=== PATIENT | male | born 1945 | race Caucasian/White ===

== ENCOUNTER 2023-08-16 10:06 | Outpatient (AMB) | payer MEDICARE, OTHER, SELFPAY ==
--- NOTE | 2023-08-16 10:10 | HO.NEPHOV ---
HPI HPI Comments History of Present Illness Details I had the delight of seeing Chalino in consultation for angiomyolipoma as well as a renal cyst in the kidney. He has longstanding hypertension. His blood pressure control has been suboptimal on losartan and as a result hydrochlorothiazide was added to recently. He does not have any flank pain, hematuria, night sweats or weight loss. He is very methodical and has kept copies of all his medical records in his file. Some of the follow-up imaging studies did not show any renal stones. Also some other did not show both the renal cysts. His serum creatinine has been 1.0. He does not take any excessive nonsteroidal anti-inflammatories. He denies chest pain, shortness of breath, proximal nocturnal dyspnea, orthopnea, pedal edema, dysuria, hematuria. He has history of a TIA 6 years ago. He is on aspirin but does not take any statins now. [facility] Medical History (Updated 08/20/23 @ 16:37 by Sandro Pittman MD) Venous insufficiency Renal cyst Renal angiomyolipoma PPD positive Pleural plaque due to asbestos exposure CELY (obstructive sleep apnea) Nummular eczema Lung nodules Impaired fasting glucose Transient cerebral ischemia Esophageal dilatation Enlarged prostate Colon polyps Chronic sinusitis Calcification of aorta Benign hypertension Asthma Asbestos exposure Surgical History (Updated 08/16/23 @ 10:18 by Mayte Crockett MA) S/P correction of deviated nasal septum History of knee surgery History of back surgery History of appendectomy History of shoulder surgery H/O colonoscopy Family History (Updated 08/15/23 @ 13:10 by Mayte Crockett MA) Mother Kidney disease Father CAD (coronary artery disease) Social History (Updated 08/16/23 @ 10:20 by Mayte Crockett MA) Alcohol intake: current Patient Tobacco Use Status: Never used Tobacco Vital Signs 08/16/23 10:11 Height 5 ft 10.5 in Weight 175 lb 6 oz BMI 24.8 BP 126/60 Blood Pressure Location Lt brachial Position Sitting Pulse 67 Pulse Source Pulse Oximeter Pulse Oximetry (%) 98 Oxygen Delivery Method Room Air Physical Exam Vital Signs: Last Vital Signs Pulse 67 08/16/23 10:11 BP 126/60 08/16/23 10:11 Pulse Ox 98 08/16/23 10:11 Oxygen Delivery Method Room Air 08/16/23 10:11 BMI result Body Mass Index 24.8 Const General: comfortable and no acute distress Orientation/consciousness: patient oriented x3 HEENT Head: Yes normocephalic Mouth: Normal oral and palatal mucosa present Eyes EOM: EOMs intact bilaterally Neck Neck: Yes supple Resp Auscultation: clear to auscultation bilaterally Cardio Jugular venous distension: no JVD Rate: regular rate GI Palpation (GI): Soft to palpation Auscultation: normal bowel sounds General: Yes no CVA tenderness Back/Spine/Pelvis Back: no CVA tenderness Skin General skin exam: no rashes or lesions noted Neuro General: patient oriented x3 and moves all extremities Extrem General: Yes no pedal edema Assessment & Plan Assessment & Plan (1) Renal cyst: Code(s): N28.1 - Cyst of kidney, acquired (2) Renal angiomyolipoma: Code(s): D1. - Benign lipomatous neoplasm of kidney (3) Hypertension: Code(s): I10 - Essential (primary) hypertension Qualifiers: Hypertension type: primary hypertension Qualified Code(s): I10 - Essential (primary) hypertension Plan Chalino has history of angiomyolipoma of the kidney as well as history of 2 renal cysts. He had a renal calculus noted in 1 of the scans which was not picked up in the very last imaging study. His serum creatinine is normal. He has longstanding blood pressure and has been taking losartan. Blood pressure was still suboptimal and hydrochlorothiazide was introduced recently with improvement in blood pressure readings. I have ordered repeat renal functions prior to CT abdomen and pelvis with intravenous contrast. If his angiomyolipoma is getting significantly bigger, it may need embolization. I did not make any medication changes today. All his questions were answered. Follow-up given. Orders: Orders Blood Urea Nitrogen 08/16/23 D1. - Benign lipomatous neoplasm of kidney, N28.1 - Cyst of kidney, acquired CT abdomen pelvis w IV con 08/16/23 D1. - Benign lipomatous neoplasm of kidney, N28.1 - Cyst of kidney, acquired PSA,Total (Free>4and<10) 08/16/23 D1 - Benign lipomatous neoplasm of kidney, N28.1 - Cyst of kidney, acquired Creatinine 08/16/23 D1. - Benign lipomatous neoplasm of kidney, N28.1 - Cyst of kidney, acquired Electrolytes 08/16/23 D17.71 - Benign lipomatous neoplasm of kidney, N28.1 - Cyst of kidney, acquired Coding Level of Care Code New Pt Level 4 (42266) Diagnoses Renal cyst N28.1 Renal angiomyolipoma D17.71 Primary hypertension I10 Hypertension type: primary hypertension Results Reviewed Nephrology Results: No Data to Display
[2023-08-16 10:11] VITALS: BP 126/60; PULSE 67; O2SAT 98; BMI 24.8
== END 2023-08-16 11:07 | disposition home or self-care (01) ==
PROVIDERS: PCP Internal Medicine; Visit Provider Internal Medicine Nephrology
DX: N28.1 Cyst of kidney, acquired (principal); D17.71 Benign lipomatous neoplasm of kidney; I10 Essential (primary) hypertension
CPT/HCPCS: 99204

== ENCOUNTER → 2023-08-16 10:06 | Outpatient (BNVA) | payer MEDICARE, OTHER, SELFPAY | PROVIDERS: PCP Internal Medicine; Visit Provider Internal Medicine Nephrology | DX: D17.71 Benign lipomatous neoplasm of kidney (principal); N28.1 Cyst of kidney, acquired; I10 Essential (primary) hypertension | CPT/HCPCS: 99202 ==

== ENCOUNTER 2023-08-28 13:57 | Outpatient (REF) | payer MEDICARE, OTHER, SELFPAY ==
--- NOTE | ~2023-08-28 | CT_ITS ---
EXAMINATION: CT ABDOMEN AND PELVIS WITH CONTRAST CLINICAL INFORMATION: Renal cyst COMPARISON: Previous CT of the chest August 2009 and abdomen and pelvis July 2009 TECHNIQUE: Multidetector volumetric images were obtained from the superior aspect of the liver through the pubic symphysis following administration 85 mL of Omnipaque 350 intravenous contrast. Sagittal and coronal reformatted images were obtained on the technologist's workstation. Oral contrast: No This CT examination was performed using dose optimization techniques as appropriate, variously including the following: *Automated exposure control *Adjustment of mA and/or kV according to patient size (this includes techniques or standardized protocols for targeted exams where dose is matched to indication/reason for exam; i.e. extremities or head) *Use of iterative reconstruction technique DLP: 370 mGy-cm FINDINGS: LUNG BASES: Right pleural calcification and pleural thickening. 5 mm right lower lobe nodule axial image 4 series 6, stable. Small linear scarring or subsegmental atelectasis left lower lobe. LIVER, GALLBLADDER, AND BILIARY TREE: The liver is normal in size, shape, and attenuation. No focal hepatic lesion or biliary ductal dilatation is present. The gallbladder is unremarkable with no evidence of radiopaque gallstones, gallbladder wall thickening, or obvious pericholecystic inflammatory changes. PANCREAS: 9 mm fatty lesion in the body of the pancreas probably representing a benign lipoma. Increase in size from 5 mm in 2010 exams SPLEEN: Unremarkable. ADRENAL GLANDS: Unremarkable. KIDNEYS AND URETERS: The kidneys are normal in size, shape, and attenuation. 4 mm cortical calcification in the lower pole of the right kidney. 2 small 5 mm low-attenuation lesions in the lower pole the right kidney probably representing cysts. 3 mm stone in the lower pole of the left kidney. 1 cm cyst in the upper pole of the left kidney. No imaging follow-up of renal cysts recommended. BLADDER: Unremarkable. GASTROINTESTINAL TRACT: The small and large bowel are unremarkable. The appendix is is not seen. The stomach is unremarkable. ABDOMINAL WALL: No significant hernia is appreciated. LYMPH NODES: Normal. VASCULAR: Unremarkable. PELVIC VISCERA: Enlarged prostate gland measuring 5.2 x 6.2 cm in AP and transverse dimension. OSSEOUS STRUCTURES: Degenerative changes of the spine. CT/CT abdomen pelvis w IV con IMPRESSION: Small bilateral renal cysts, largest measuring 1 cm in the upper pole of the left kidney. No imaging follow-up recommended. Small nonobstructing left lower pole renal stone. Small probable right cortical calcification. Enlarged prostate gland. 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 Fleischner guidelines were followed.
[2023-08-28 14:48] LABS: Anion Gap 12 (12-20); Blood Urea Nitrogen 26 mg/dL (9-16); Carbon Dioxide 28 mmol/L (22-29); Chloride 104 mmol/L (96-108); Estimated Glomerular Filt Rate 55; Potassium 4.2 mmol/L (3.3-5.1); Sodium 140 mmol/L (135-145)
[2023-08-28 15:11] LABS: PSA,Total (Free>4and<10) 3.04 ng/mL (0.00-4.00)
[2023-08-28] MEDS: iohexoL 350 MG/ML 100 ML INFUS..BTL 85 ML IV (16:05)
== END 2023-08-28 13:58 | disposition home or self-care (01) ==
LOC: HO.CT 13:57
PROVIDERS: PCP Internal Medicine; Visit Provider Internal Medicine Nephrology
DX: Z12.5 Encounter for screening for malignant neoplasm of prostate (principal); N28.1 Cyst of kidney, acquired; D17.71 Benign lipomatous neoplasm of kidney
CPT/HCPCS: 36415; 74177; 80051; 82565; 84153; 84520; Q9967

== ENCOUNTER → 2024-01-20 10:29 | Outpatient (BNVA) | payer SELFPAY | PROVIDERS: PCP Internal Medicine | DX: Z02.79 Encounter for issue of other medical certificate (principal) ==

== ENCOUNTER → 2024-01-22 09:53 | Outpatient (BNVA) | payer SELFPAY | PROVIDERS: PCP Internal Medicine; Visit Provider Internal Medicine | DX: Z00.00 Encounter for general adult medical examination without abnormal findings (principal); Z13.5 Encounter for screening for eye and ear disorders ==

== ENCOUNTER 2024-02-14 10:04 | Outpatient (AMB) | payer MEDICARE, OTHER, SELFPAY ==
[2024-02-14 10:07] VITALS: BP 124/60; PULSE 74; O2SAT 98; BMI 22.3
--- NOTE | 2024-02-14 10:07 | HO.NEPHOV_ITS ---
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 He has longstanding hypertension. He has lost 19 pounds by dietary changes. He does not have any flank pain, hematuria, night sweats or weight loss. He is very methodical and has kept copies of all his medical records in his file. Some of the follow-up imaging studies did not show any renal stones. Also some other did not show both the renal cysts. His serum creatinine has been 1.2. He does not take any excessive nonsteroidal anti- inflammatories. He denies chest pain, shortness of breath, proximal nocturnal dyspnea, orthopnea, pedal edema, dysuria, hematuria. He has history of a TIA 6 years ago. He is on aspirin but does not take any statins now. [facility] Medical History (Updated 02/14/24 @ 10:39 by Sandro Pittman MD) Venous insufficiency Renal cyst Renal angiomyolipoma PPD positive Pleural plaque due to asbestos exposure CELY (obstructive sleep apnea) Nummular eczema Lung nodules Impaired fasting glucose Transient cerebral ischemia Esophageal dilatation Enlarged prostate Colon polyps Chronic sinusitis Calcification of aorta Benign hypertension Asthma Asbestos exposure Surgical History S/P correction of deviated nasal septum History of knee surgery History of back surgery History of appendectomy History of shoulder surgery H/O colonoscopy Family History Mother Kidney disease Father CAD (coronary artery disease) Social History Alcohol intake: current Patient Tobacco Use Status: Never used Tobacco Physical Exam Vital Signs: Last Vital Signs Pulse 74 02/14/24 10:07 BP 124/60 02/14/24 10:07 Pulse Ox 98 02/14/24 10:07 Oxygen Delivery Method Room Air 02/14/24 10:07 BMI result Body Mass Index 22.3 Const General: comfortable and no acute distress Orientation/consciousness: patient oriented x3 HEENT Head: Yes normocephalic Mouth: Normal oral and palatal mucosa present Eyes EOM: EOMs intact bilaterally Neck Neck: Yes supple Resp Auscultation: clear to auscultation bilaterally Cardio Jugular venous distension: no JVD Rate: regular rate GI Palpation (GI): Soft to palpation Auscultation: normal bowel sounds General: Yes no CVA tenderness Back/Spine/Pelvis Back: no CVA tenderness Skin General skin exam: no rashes or lesions noted Neuro General: patient oriented x3 and moves all extremities Extrem General: Yes no pedal edema Results Reviewed Nephrology Results: Sodium 140 mmol/L (135-145) 08/28/23 Potassium 4.2 mmol/L (3.3-5.1) 08/28/23 Chloride 104 mmol/L (96-108) 08/28/23 Carbon Dioxide 28 mmol/L (22-29) 08/28/23 BUN 26 mg/dL (9-16) H 08/28/23 Creatinine 1.27 mg/dL (0.5-1.4) 08/28/23 Assessment & Plan Assessment & Plan (1) Hypertension: Code(s): I10 - Essential (primary) hypertension Category: Medical Qualifiers: Hypertension type: primary hypertension Qualified Code(s): I10 - Essential (primary) hypertension (2) Renal cyst: Code(s): N28.1 - Cyst of kidney, acquired Category: Medical (3) Renal angiomyolipoma: Code(s): D17.71 - Benign lipomatous neoplasm of kidney Category: Medical (4) Renal calculus: Code(s): N20.0 - Calculus of kidney Category: Medical (5) High prostate specific antigen (PSA): Code(s): R97.20 - Elevated prostate specific antigen [PSA] Category: Medical (6) Renal calculus: Code(s): N20.0 - Calculus of kidney Category: Medical Plan Chalino has history of angiomyolipoma of the kidney as well as history of 2 renal cysts. He had a renal calculus . I ordered a follow up renal USS. Blood pressure is optimal on current medications. I have ordered repeat renal functions and PSA.. If his angiomyolipoma is getting significantly bigger, it may need embolization. I did not make any medication changes today. All his questions were answered. Follow-up given Orders: Orders Creatinine Today I10 - Essential (primary) hypertension, N20.0 - Calculus of kidney, R97.20 - Elevated prostate specific antigen [PSA] US renal BI Today N20.0 - Calculus of kidney PSA,Total (Free>4and<10) Today R97.20 - Elevated prostate specific antigen [PSA] Electrolytes Today I10 - Essential (primary) hypertension, N20.0 - Calculus of kidney, R97.20 - Elevated prostate specific antigen [PSA] Blood Urea Nitrogen Today I10 - Essential (primary) hypertension, N20.0 - Calculus of kidney, R97.20 - Elevated prostate specific antigen [PSA] Coding Level of Care Code Est Pt Level 4 (73094) Diagnoses Primary hypertension I10 Hypertension type: primary hypertension Renal cyst N28.1 Renal angiomyolipoma D17.71 Renal calculus N20.0 High prostate specific antigen (PSA) R97.20
== END 2024-02-14 10:47 | disposition home or self-care (01) ==
PROVIDERS: PCP Internal Medicine; Visit Provider Internal Medicine Nephrology
DX: I10 Essential (primary) hypertension (principal); N28.1 Cyst of kidney, acquired; D17.71 Benign lipomatous neoplasm of kidney; N20.0 Calculus of kidney; R97.20 Elevated prostate specific antigen [PSA]
CPT/HCPCS: 99214

== ENCOUNTER → 2024-02-14 10:04 | Outpatient (BNVA) | payer MEDICARE, OTHER, SELFPAY | PROVIDERS: PCP Internal Medicine; Visit Provider Internal Medicine Nephrology | DX: N28.1 Cyst of kidney, acquired (principal); D17.71 Benign lipomatous neoplasm of kidney; N20.0 Calculus of kidney; R97.20 Elevated prostate specific antigen [PSA]; I10 Essential (primary) hypertension | CPT/HCPCS: 99212 ==

== ENCOUNTER 2024-03-05 09:05 | Outpatient (REF) | payer MEDICARE, OTHER, SELFPAY ==
[2024-03-05 10:00] LABS: Anion Gap 9 (12-20); Blood Urea Nitrogen 20 mg/dL (9-16); Carbon Dioxide 31 mmol/L (22-29); Chloride 105 mmol/L (96-108); Estimated Glomerular Filt Rate > 60; Potassium 4.4 mmol/L (3.3-5.1); Sodium 141 mmol/L (135-145)
[2024-03-05 10:22] LABS: PSA,Total (Free>4and<10) 3.11 ng/mL (0.00-4.00)
== END 2024-03-05 09:06 | disposition home or self-care (01) ==
LOC: HO.LAB 09:05
PROVIDERS: PCP Internal Medicine; Visit Provider Internal Medicine Nephrology
DX: N20.0 Calculus of kidney (principal); I10 Essential (primary) hypertension; R97.20 Elevated prostate specific antigen [PSA]; Z12.5 Encounter for screening for malignant neoplasm of prostate
CPT/HCPCS: 36415; 80051; 82565; 84153; 84520

== ENCOUNTER 2024-03-09 10:03 | Outpatient (REF) | payer MEDICARE, OTHER, SELFPAY ==
--- NOTE | ~2024-03-09 | US_ITS ---
EXAMINATION: US RETROPERITONEAL LIMITED (RENAL ONLY) CLINICAL INFORMATION: Follow-up renal calculus; intermittent left flank pain. COMPARISON: CT abdomen and pelvis dated 08/28/2023. TECHNIQUE: Real-time imaging of the kidneys. FINDINGS: RIGHT KIDNEY: 12.6 x 4.2 x 4.8 cm (SAG x AP x TRV). The kidney is normal in size, contour, and echogenicity. Renal cortical thickness is normal. No calculi or focal parenchymal lesions. No hydronephrosis. At the upper pole, a 1.1 cm benign, simple cyst is seen, for which no imaging follow-up is recommended. LEFT KIDNEY: 10.2 x 3.9 x 6.0 cm (SAG x AP x TRV). The kidney is normal in size, contour, and echogenicity. Renal cortical thickness is normal. No calculi or focal parenchymal lesions. There is very mild hydronephrosis. At the upper pole, a 1.2 cm simple cyst is seen, for which no imaging follow-up is recommended. OTHER: Bilateral ureteric jets are seen. There is mild left ureterectasis. US/US renal BI IMPRESSION: There is very mild left hydronephrosis and proximal hydroureter. Otherwise, unremarkable examination. No calculus is seen.
== END 2024-03-09 10:04 | disposition home or self-care (01) ==
LOC: HO.US 10:03
PROVIDERS: PCP Internal Medicine; Visit Provider Internal Medicine Nephrology
DX: N20.0 Calculus of kidney (principal)
CPT/HCPCS: 76775

== ENCOUNTER 2024-07-17 09:48 | Outpatient (AMB) | payer MEDICARE, OTHER, SELFPAY ==
--- NOTE | 2024-07-17 10:14 | HO.NEPHOV_ITS ---
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 He has longstanding hypertension. He has lost 19 pounds by dietary changes. He does not have any flank pain, hematuria, night sweats or weight loss. He is very methodical and has kept copies of all his medical records in his file. Some of the follow-up imaging studies did not show any renal stones. Also some other did not show both the renal cysts. His serum creatinine has been 1.2. He does not take any excessive nonsteroidal anti-inflammatories. He denies chest pain, shortness of breath, proximal nocturnal dyspnea, orthopnea, pedal edema, dysuria, hematuria. He has history of a TIA 6 years ago. He is on aspirin but does not take any statins now. [facility] Medical History (Updated 02/14/24 @ 10:39 by Sandro Pittman MD) Venous insufficiency Renal cyst Renal angiomyolipoma PPD positive Pleural plaque due to asbestos exposure CELY (obstructive sleep apnea) Nummular eczema Lung nodules Impaired fasting glucose Transient cerebral ischemia Esophageal dilatation Enlarged prostate Colon polyps Chronic sinusitis Calcification of aorta Benign hypertension Asthma Asbestos exposure Surgical History S/P correction of deviated nasal septum History of knee surgery History of back surgery History of appendectomy History of shoulder surgery H/O colonoscopy Family History Mother Kidney disease Father CAD (coronary artery disease) Social History Alcohol intake: current Patient Tobacco Use Status: Never used Tobacco Review of Systems Const All systems reviewed & are unremarkable except as noted in HPI and below Physical Exam Vital Signs: Last Vital Signs BP 130/70 07/17/24 10:17 BMI result Body Mass Index 22.5 Const General: comfortable and no acute distress Orientation/consciousness: patient oriented x3 HEENT Head: Yes normocephalic Mouth: Normal oral and palatal mucosa present Eyes EOM: EOMs intact bilaterally Neck Neck: Yes supple Resp Auscultation: clear to auscultation bilaterally Cardio Jugular venous distension: no JVD Rate: regular rate GI Palpation (GI): Soft to palpation Auscultation: normal bowel sounds General: Yes no CVA tenderness Back/Spine/Pelvis Back: no CVA tenderness Skin General skin exam: no rashes or lesions noted Neuro General: patient oriented x3 and moves all extremities Extrem General: Yes no pedal edema Results Reviewed Nephrology Results: Sodium 141 mmol/L (135-145) 03/05/24 Potassium 4.4 mmol/L (3.3-5.1) 03/05/24 Chloride 105 mmol/L (96-108) 03/05/24 Carbon Dioxide 31 mmol/L (22-29) H 03/05/24 BUN 20 mg/dL (9-16) H 03/05/24 Creatinine 0.92 mg/dL (0.5-1.4) 03/05/24 Renal US 03/09/24 Assessment & Plan Assessment & Plan (1) Renal calculus: Code(s): N20.0 - Calculus of kidney Category: Medical (2) Hypertension: Code(s): I10 - Essential (primary) hypertension Category: Medical Qualifiers: Hypertension type: primary hypertension Qualified Code(s): I10 - Essential (primary) hypertension (3) Renal cyst: Code(s): N28.1 - Cyst of kidney, acquired Category: Medical Plan Chalino has history of angiomyolipoma of the kidney as well as history of 2 renal cysts. He had a renal calculus . Follow up renal USS showed very mild left hydronephrosis and proximal hydroureter. Otherwise, unremarkable examination. No calculus is seen.. Blood pressure is optimal on current medications. If his angiomyolipoma is getting significantly bigger, it may need embolization. I did not make any medication changes today. All his questions were answered. Follow-up given Orders: Orders Creatinine 6 Months I10 - Essential (primary) hypertension, N20.0 - Calculus of kidney, N28.1 - Cyst of kidney, acquired Blood Urea Nitrogen 6 Months I10 - Essential (primary) hypertension, N20.0 - Calculus of kidney, N28.1 - Cyst of kidney, acquired Electrolytes 6 Months I10 - Essential (primary) hypertension, N20.0 - Calculus of kidney, N28.1 - Cyst of kidney, acquired Coding Level of Care Code Est Pt Level 4 (03763) Diagnoses Renal calculus N20.0 Primary hypertension I10 Hypertension type: primary hypertension Renal cyst N28.1
[2024-07-17 10:17] VITALS: BP 130/70; BMI 22.5
== END 2024-07-17 10:35 | disposition home or self-care (01) ==
PROVIDERS: PCP Internal Medicine; Visit Provider Internal Medicine Nephrology
DX: N20.0 Calculus of kidney (principal); I10 Essential (primary) hypertension; N28.1 Cyst of kidney, acquired
CPT/HCPCS: 99214

== ENCOUNTER → 2024-07-17 09:48 | Outpatient (BNVA) | payer MEDICARE, OTHER, SELFPAY | PROVIDERS: PCP Internal Medicine; Visit Provider Internal Medicine Nephrology | DX: I10 Essential (primary) hypertension (principal); N20.0 Calculus of kidney; N28.1 Cyst of kidney, acquired; D17.9 Benign lipomatous neoplasm, unspecified | CPT/HCPCS: 99212 ==

== ENCOUNTER 2025-01-08 09:43 | Outpatient (REF) | payer MEDICARE, OTHER, SELFPAY ==
--- OUTSIDE RECORDS SUMMARY | 2025-01-08 10:15 | XMS_ITS | Patient Health Record ---
[facility] Address [address] [place] [address] Care Team Providers Care Sports Therapist Name Role Phone Tera Lundberg Primary Care Provider Matt Mosley Unavailable [phone] Reason For Referral No Information Medications Medication SIG (Take, Route, Frequency, Duration) Notes Start Date End Date Status Losartan Potassium 25 MG 1 tablet Orally Once a day Active Aspirin 81 MG 1 tablet Orally Once a day Active Social History Tobacco Use: Social History Observation Description Date Details (start date - stop date) Never Smoker NA - NA Tobacco Use/Smoking Question Answer Notes Are you a: nonsmoker Additional Findings: Tobacco Non-User Current no n-smoker Alcohol Screen Question Answer Notes Did you have a drink contain ing alcohol in the past year? Yes How often did you have a dri nk containing alcohol in the past year? 2 to 4 times a month (2 points) Points 2 Interpretation Negative Problems Problem Type SNOMED Code ICD Code Onset Dates Problem Status W/U Status Risk Notes Problem Tinea unguium (571458745) Tinea unguium (B35.1) Active confirmed Problem Plantar wart (55784195) Plantar wart (B07.0) Active confirmed Plan Of Treatment Pending Test Test Name Order Date [id number] Destruction, 1-14 03/11/2018 Insurance Providers Payer Name Payer Address Payer Phone Subscriber Number Group Number Insured Name Patient Relationship to Insured Coverage Start Date Coverage End Date Medicare [employer] [address] [facility] [address] [id number] Chalino Carmen Self - patient is the insured [facility] [employer] [facility] [address] [place] [address] [id number] Chalino Carmen Self - patient is the insured Medical (General) History Medical History History ICD Code asthma Broken bones, fibula, right, left High blood pressure Asbestos Exposure while in the [place] Surgical History Surgery Date(Month/Year) carpal tunnel surgery, left 11/2015 carpal tunnel surgery, right 09/2011 rotator cuff, left, complication of open shoulder 08/2008 rotator cuff, right, complication of ope n shoulder 03/2008 back surgery, bulging disc, L5-S1 1
[2025-01-08 10:48] LABS: Anion Gap 9 (12-20); Blood Urea Nitrogen 30 mg/dL (9-16); Carbon Dioxide 29 mmol/L (22-29); Chloride 104 mmol/L (96-108); Estimated Glomerular Filt Rate > 60; Potassium 4.8 mmol/L (3.3-5.1); Sodium 137 mmol/L (135-145)
== END 2025-01-08 09:44 | disposition home or self-care (01) ==
LOC: HO.LAB 09:43
PROVIDERS: PCP Internal Medicine; Visit Provider Internal Medicine Nephrology
DX: N28.1 Cyst of kidney, acquired (principal); N20.0 Calculus of kidney; I10 Essential (primary) hypertension
CPT/HCPCS: 36415; 80051; 82565; 84520

== ENCOUNTER 2025-01-13 11:12 | Outpatient (AMB) | payer MEDICARE, OTHER, SELFPAY ==
--- NOTE | 2025-01-13 11:15 | HO.NEPHOV_ITS ---
Vital Signs 01/13/25 11:19 Height 5 ft 10.5 in Weight 160 lb BMI 22.6 BP 130/70 Blood Pressure Location Lt brachial Position Sitting Pulse 67 Pulse Source Pulse Oximeter Pulse Oximetry (%) 97 Oxygen Delivery Method Room Air Intake Visit Reasons: Renal angiomyolipoma-Conf Inside Technical Sales Representative Required: No Accompanied by: Self / Same As Patient Allergies No Known Allergies Allergy (Verified 01/13/25 11:18) HPI Comments Details: Chalino was seen in follow up for angiomyolipoma as well as a renal cyst in the kidney. He has longstanding hypertension. He has lost 19 pounds by dietary changes. He does not have any flank pain, hematuria, night sweats or weight loss. He is very methodical and has kept copies of all his medical records in his file. Some of the follow-up imaging studies did not show any renal stones. Also some other did not show both the renal cysts. His serum creatinine has been 1.2. He does not take any excessive nonsteroidal anti-inflammatories. He denies chest pain, shortness of breath, proximal nocturnal dyspnea, orthopnea, pedal edema, dysuria, hematuria. He has history of a TIA 6 years ago. He is on aspirin and statins. [facility] Medical History (Updated 02/14/24 @ 10:39 by Sandro Pittman MD) Venous insufficiency Renal cyst Renal angiomyolipoma PPD positive Pleural plaque due to asbestos exposure CELY (obstructive sleep apnea) Nummular eczema Lung nodules Impaired fasting glucose Transient cerebral ischemia Esophageal dilatation Enlarged prostate Colon polyps Chronic sinusitis Calcification of aorta Benign hypertension Asthma Asbestos exposure Surgical History S/P correction of deviated nasal septum History of knee surgery History of back surgery History of appendectomy History of shoulder surgery H/O colonoscopy Family History Mother Kidney disease Father CAD (coronary artery disease) Social History Alcohol intake: current Patient Tobacco Use Status: Never used Tobacco Review of Systems Const All systems reviewed & are unremarkable except as noted in HPI and below Physical Exam Const General: comfortable and no acute distress Orientation/consciousness: patient oriented x3 HEENT Head: Yes normocephalic Mouth: Normal oral and palatal mucosa present Eyes EOM: EOMs intact bilaterally Neck Neck: Yes supple Resp Auscultation: clear to auscultation bilaterally Cardio Jugular venous distension: no JVD Rate: regular rate GI Palpation (GI): Soft to palpation Auscultation: normal bowel sounds General: Yes no CVA tenderness Back/Spine/Pelvis Back: no CVA tenderness Skin General skin exam: no rashes or lesions noted Neuro General: patient oriented x3 and moves all extremities Extrem General: Yes no pedal edema Results Reviewed Nephrology Results: Sodium, (135-145) 137 mmol/L 01/08/25 Potassium, (3.3-5.1) 4.8 mmol/L 01/08/25 Chloride, (96-108) 104 mmol/L 01/08/25 Carbon Dioxide, (22-29) 29 mmol/L 01/08/25 BUN, (9-16) 30 mg/dL H 01/08/25 Creatinine, (0.5-1.4) 0.95 mg/dL 01/08/25 Renal US 03/09/24 Assessment & Plan Assessment & Plan (1) Hypertension: Code(s): I10 - Essential (primary) hypertension Category: Medical Qualifiers: Hypertension type: primary hypertension Qualified Code(s): I10 - Essential (primary) hypertension (2) Renal cyst: Code(s): N28.1 - Cyst of kidney, acquired Category: Medical (3) Renal calculus: Code(s): N20.0 - Calculus of kidney Category: Medical (4) Renal angiomyolipoma: Code(s): D17.71 - Benign lipomatous neoplasm of kidney Category: Medical Plan Chalino has history of angiomyolipoma of the kidney as well as history of 2 renal cysts. He had a renal calculus . Follow up renal USS showed very mild left hydronephrosis and proximal hydroureter. Otherwise, unremarkable examination. No calculus is seen.. Blood pressure is optimal on current medications. If his angiomyolipoma is getting significantly bigger, it may need embolization. I did not make any medication changes today. All his questions were answered. Follow-up given Orders: Orders Calcium 1 Year D17.71 - Benign lipomatous neoplasm of kidney, I10 - Essential (primary) hypertension, N20.0 - Calculus of kidney, N28.1 - Cyst of kidney, acquired, R97.20 - Elevated prostate specific antigen [PSA] Blood Urea Nitrogen 1 Year D17.71 - Benign lipomatous neoplasm of kidney, I10 - Essential (primary) hypertension, N20.0 - Calculus of kidney, N28.1 - Cyst of kidney, acquired, R97.20 - Elevated prostate specific antigen [PSA] PSA,Total (Free>4and<10) 1 Year D17.71 - Benign lipomatous neoplasm of kidney, I10 - Essential (primary) hypertension, N20.0 - Calculus of kidney, N28.1 - Cyst of kidney, acquired, R97.20 - Elevated prostate specific antigen [PSA] Protein Creatinine Ratio, Ur 1 Year D17.71 - Benign lipomatous neoplasm of kidney, I10 - Essential (primary) hypertension, N20.0 - Calculus of kidney, N28.1 - Cyst of kidney, acquired, R97.20 - Elevated prostate specific antigen [PSA] US renal BI 1 Month D17.71 - Benign lipomatous neoplasm of kidney, I10 - Essential (primary) hypertension, N20.0 - Calculus of kidney, N28.1 - Cyst of kidney, acquired Electrolytes 1 Year D17.71 - Benign lipomatous neoplasm of kidney, I10 - Essential (primary) hypertension, N20.0 - Calculus of kidney, N28.1 - Cyst of kidney, acquired, R97.20 - Elevated prostate specific antigen [PSA] Creatinine 1 Year D17.71 - Benign lipomatous neoplasm of kidney, I10 - Essential (primary) hypertension, N20.0 - Calculus of kidney, N28.1 - Cyst of kidney, acquired, R97.20 - Elevated prostate specific antigen [PSA] Coding Level of Care Code Est Pt Level 4 (33526) Diagnoses Primary hypertension I10 Hypertension type: primary hypertension Renal cyst N28.1 Renal calculus N20.0 Renal angiomyolipoma D17.
[2025-01-13 11:19] VITALS: BP 130/70; PULSE 67; O2SAT 97; BMI 22.6
--- OUTSIDE RECORDS SUMMARY | 2025-01-13 13:01 | XMS_ITS | Patient Health Record ---
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 And Cookie Machine Operator Name Role Phone Tera Lundberg Primary Care Provider Matt Mosley Unavailable [phone] Reason For Referral No Information Medications Medication [...] W/U Status Risk Notes Problem Tinea unguium (551199864) Tinea unguium (B35.1) Active confirmed Problem Plantar wart (07735202) Plantar wart (B07.0) Active confirmed Plan Of Treatment Pending Test Test Name Order Date [id number] Destruction, 1-14 03/11/2018 Insurance Providers Payer Name Payer Address Payer Phone Subscriber Number Group Number Insured Name Patient Relationship to Insured Coverage Start Date Coverage End Date Medicare National Govt Svcs Inc [address] [place] [address] [id number] Chalino Carmen Self - patient is the insured 8 [facility] [employer] [facility] [address] [place] [address] [id number] Chalino Carmen Self - patient is the insured Medical (General) History Medical History History ICD Code asthma Broken bones, fibula, right, left High blood pressure Asbestos Exposure while in the [employer] [place] Surgical History Surgery Date(Month/Year) carpal tunnel surgery, left 11/2015 carpal tunnel surgery, right 09/2011 rotator cuff, left, complication of open shoulder 08/2008 rotator cuff, right, complication of ope n shoulder 03/2008 back surgery, bulging disc, L5-S1 1
== END 2025-01-13 11:46 | disposition home or self-care (01) ==
LOC: HO.HKA 11:13
PROVIDERS: PCP Internal Medicine; Visit Provider Internal Medicine Nephrology
DX: I10 Essential (primary) hypertension (principal); N28.1 Cyst of kidney, acquired; N20.0 Calculus of kidney; D17.71 Benign lipomatous neoplasm of kidney
CPT/HCPCS: 99214

== ENCOUNTER → 2025-01-13 11:12 | Outpatient (BNVA) | payer MEDICARE, OTHER, SELFPAY | PROVIDERS: PCP Internal Medicine; Visit Provider Internal Medicine Nephrology | DX: I10 Essential (primary) hypertension (principal); N28.1 Cyst of kidney, acquired; N20.0 Calculus of kidney; D17.71 Benign lipomatous neoplasm of kidney | CPT/HCPCS: 99212 ==

== ENCOUNTER 2025-02-23 15:04 | Outpatient (REF) | payer MEDICARE, OTHER, SELFPAY ==
--- NOTE | ~2025-02-23 | US_ITS ---
CLINICAL HISTORY: N28.1 - Cyst of kidney, acquired --- Additional Notes or Special Instructions: Has H O angiomyolipoma US renal Comparison: None Provided Findings: Right kidney 9.0 cm length. No significant focal abnormality. Left kidney 9.3 cm length. No significant focal abnormality. Bilateral upper pole cysts. No bilateral hydronephrosis. Normal bilateral renal echogenicity. Impression: No significant abnormalities. This document has been electronically signed by: Asher Portillo MD on 02/23/2025 21:13:59
--- OUTSIDE RECORDS SUMMARY | 2025-02-23 15:56 | XMS_ITS | Patient Health Record ---
Author Organization [facility] Address [address] [place] [address] Care Team Providers Care Rubber And Plastics Worker Name Role Phone Tera Lundberg Primary Care Provider Matt Mosley Unavailable [phone] Reason For Referral No Information Medications Medication [...] W/U Status Risk Notes Problem Tinea unguium (205741998) Tinea unguium (B35.1) Active confirmed Problem Plantar wart (11985235) Plantar wart (B07.0) Active confirmed Plan Of Treatment Pending Test Test Name Order Date [id number] Destruction, 1-03/11/2018 Insurance Providers Payer Name Payer Address Payer Phone Subscriber Number Group Number Insured Name Patient Relationship to Insured Coverage Start Date Coverage End Date Medicare National Govt Svcs Inc [address] [place] [address] [id number] Chalino Carmen Self - patient is the insured 8 [facility] [employer] [facility] [address] [place] [address] [phone] [id number] Chalino Carmen Self - patient is the insured Medical (General) History Medical History History ICD Code asthma Broken bones, fibula, right, left High blood pressure Asbestos Exposure while in the [employer] [place] Surgical History Surgery Date(Month/Year) carpal tunnel surgery, left 11/2015 carpal tunnel surgery, right 09/2011 rotator cuff, left, complication of open shoulder 08/2008 rotator cuff, right, complication of ope n shoulder 03/2008 back surgery, bulging disc, L5-S1 1
== END 2025-02-23 15:05 | disposition home or self-care (01) ==
LOC: HO.US 15:04
PROVIDERS: PCP Internal Medicine; Visit Provider Internal Medicine Nephrology
DX: N28.1 Cyst of kidney, acquired (principal); N20.0 Calculus of kidney; D17.71 Benign lipomatous neoplasm of kidney; I10 Essential (primary) hypertension
CPT/HCPCS: 76775

== ENCOUNTER → 2025-02-23 15:06 | Outpatient (BNV) | payer MEDICARE, OTHER, SELFPAY | PROVIDERS: PCP Internal Medicine; Visit Provider Radiology Diagnostic Radiology | DX: N28.1 Cyst of kidney, acquired (principal) | CPT/HCPCS: 76775 ==

== ENCOUNTER 2025-03-03 13:09 | Outpatient (AMB) | payer MEDICARE, OTHER, SELFPAY ==
--- NOTE | 2025-03-03 13:09 | A.OFFVIS_ITS ---
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 PSA level is 3.1, previously 3.8 a year ago, managed by multiple physicians including Dr. Brewster and Dr. Rodriguez. History of angiomyolipomas on the right kidney, less than a centimeter, monitored with ultrasounds. Intervention required if growth reaches 3 cm. History of nephrolithiasis, treated by Dr. Fischer. Reports nocturia, improved to once or twice per night, and urinary urgency requiring stops while driving. 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 Immigrated from [place] at age 16, joined the [employer] at 18, served for 30 years, retired in 1994. Urinary Symptoms Review - Nocturia: Wakes up three to four times at night, improved to once or twice. - Urinary urgency: Requires stopping while driving to urinate. Results - PSA level: 3.1, previously 3.8 a year ago. - Ultrasound of right kidney: Angiomyolipomas less than a centimeter. [facility] Medical History (Updated 02/14/24 @ 10:39 by Sandro Pittman MD) Venous insufficiency Renal cyst Renal angiomyolipoma PPD positive Pleural plaque due to asbestos exposure CELY (obstructive sleep apnea) Nummular eczema Lung nodules Impaired fasting glucose Transient cerebral ischemia Esophageal dilatation Enlarged prostate Colon polyps Chronic sinusitis Calcification of aorta Benign hypertension Asthma Asbestos exposure Surgical History S/P correction of deviated nasal septum History of knee surgery History of back surgery History of appendectomy History of shoulder surgery H/O colonoscopy Family History Mother Kidney disease Father CAD (coronary artery disease) Social History Alcohol intake: current Patient Tobacco Use Status: Never used Tobacco Review of Systems Const Denies chills and Denies fever(s) Card Reports no additional complaints and Denies syncope Resp Denies cough GI Denies abdominal pain and Denies heartburn Reports as per HPI and Denies change in libido Neuro Denies syncope Psych Denies change in libido Endo Denies change in libido Physical Exam Const General: cooperative, healthy appearing, comfortable and no acute distress Orientation/consciousness: patient oriented x3 HEENT Face and sinus: Yes normal facial exam Mouth: moist mucous membranes Neck Neck: Yes normal visual inspection, Yes full ROM and Yes trachea midline Chest Chest palpation & inspection: normal inspection of the chest Resp Effort & Inspection: normal respiratory effort, able to speak in complete sentences and no respiratory distress GI Inspection: Yes normal to inspection Back/Spine/Pelvis Cervical Spine: normal cervical lordosis Thoracic/Lumbar Spine: thoracic and lumbar spine normal to inspection Skin General skin exam: no rashes or lesions noted Neuro General: patient oriented x3, gait normal, tone normal and moves all extremities Extrem General: Yes normal to inspection and Yes capillary refill normal Assessment & Plan Assessment & Plan (1) Renal calculus: Code(s): N20.0 - Calculus of kidney Category: Medical (2) High prostate specific antigen (PSA): Code(s): R97.20 - Elevated prostate specific antigen [PSA] Category: Medical (3) Renal angiomyolipoma: Code(s): D17.71 - Benign lipomatous neoplasm of kidney Category: Medical Plan Patient informed verbally consented to the use of an ambient scribe 1. Elevated Prostate-Specific Antigen (Psa) - Annual PSA screening recommended. 2. Angiomyolipomas Of The Right Kidney - Ultrasound monitoring unless growth exceeds 3 cm. 3. History Of Nephrolithiasis - No intervention needed currently. Discussion Notes I discussed with the patient the importance of continuing annual PSA screenings given his age and current PSA levels. We reviewed the ultrasound findings of the right kidney, noting the presence of angiomyolipomas and the criteria for intervention if they grow. The patient was advised that no current intervention is needed for his history of nephrolithiasis. Patient Instructions - Continue with annual PSA screenings. - Monitor kidney health with ultrasounds as advised. - No current treatment needed for kidney stones. Orders: Orders US renal BI Today N20.0 - Calculus of kidney Prostate Specific Antigen 12 Months N20.0 - Calculus of kidney Patient Instructions: This note is constructed using voice recognition software. While every effort has been made to ensure accuracy family service assistant errors may have been included. Imaging studies, laboratory and physical exam results were discussed and reviewed in detail. No major barriers to patient understanding were identified. An opportunity to ask questions regarding the treatment plan was provided. All questions were answered. The patient expressed understanding and agreement with the above treatment plan. The patient is aware they should contact our office by phone for worsening of their current condition or the appearance of new urologic symptoms. Compliance is encouraged with any medications and followup testing that is ordered. It is a privilege to participate in the urologic care of your patient. If you have any questions or concerns regarding treatment for the above conditions, or other urologic issues, please do not hesitate to contact me. The office telephone contact is [phone]. Sincerely, Dr Michael Perera MD, [facility] - Urology Compassionate Specialist Care for the Genitourinary System Coding Level of Care Code New Pt Level 4 (21635) Diagnoses Renal calculus N20.0 High prostate specific antigen (PSA) R97.20 Renal angiomyolipoma D17.71
--- OUTSIDE RECORDS SUMMARY | 2025-03-03 13:43 | XMS_ITS | Patient Health Record ---
Author Organization [facility] Address [address] [place] [address] Care Team Providers Care Internal Salesperson Name Role Phone Tera Lundberg Primary Care Provider Matt Mosley Unavailable [phone] Reason For Referral No Information Medications Medication [...] W/U Status Risk Notes Problem Tinea unguium ([id number]) Tinea unguium (B35.1) Active confirmed Problem Plantar wart (B07.0) Active confirmed Plan Of Treatment Pending Test Test Name Order Date [id number] Destruction, 1-14 03/11/2018 Insurance Providers Payer Name Payer Address Payer Phone Subscriber Number Group Number Insured Name Patient Relationship to Insured Coverage Start Date Coverage End Date Medicare National Govt Svcs Inc [address] [place] [address] [id number] Chalino Carmen Self - patient is the insured 8 [employer] [address] [place] [id number] [phone] [id number] Daniel moralesChalino Self - patient is the insured Medical (General) History Medical History History ICD Code asthma Broken bones, fibula, right, left High blood pressure Asbestos Exposure while in the [employer] [place] Surgical History Surgery Date(Month/Year) carpal tunnel surgery, left 11/2015 carpal tunnel surgery, right 09/2011 rotator cuff, left, complication of open shoulder 08/2008 rotator cuff, right, complication of ope n shoulder 03/2008 back surgery, bulging disc, L5-S1 1
== END 2025-03-03 13:50 | disposition home or self-care (01) ==
LOC: HO.HUSH 13:09
PROVIDERS: PCP Internal Medicine; Visit Provider Urology
DX: N20.0 Calculus of kidney (principal); R97.20 Elevated prostate specific antigen [PSA]; D17.71 Benign lipomatous neoplasm of kidney; N28.1 Cyst of kidney, acquired
CPT/HCPCS: 99204

== ENCOUNTER → 2025-03-03 13:09 | Outpatient (BNVA) | payer MEDICARE, OTHER, SELFPAY | PROVIDERS: PCP Internal Medicine; Visit Provider Urology | DX: R97.20 Elevated prostate specific antigen [PSA] (principal); N20.0 Calculus of kidney; D17.71 Benign lipomatous neoplasm of kidney | CPT/HCPCS: 81003; 99202 ==

== ENCOUNTER 2025-04-22 09:05 | Outpatient (AMB) | payer MEDICARE, OTHER, SELFPAY ==
--- NOTE | 2025-04-22 09:06 | MHC.OFFVIS ---
Intake Visit Reasons: US results Intake Note: patient presents today for: US results urology medications: noen blood thiners: none US done: 02/23/25 Ring Striker Required: No Accompanied by: Self / Same As Patient Allergies No Known Allergies Allergy (Verified 04/22/25 09:07) HPI Comments Details: Chalino is a very pleasant male. He is a patient of Dr. Mina. He is seen for the following urologic conditions - angiomyolipoma - nephrolithiasis Telemedicine Evaluation 15 min Consultation [employer] Video Chalino notices there was an inconsistency between ultrasound reports regarding his renal angiolipoma and has concerns that it should be promptly characterize. We will organize renal MRI through [facility] as this was the original diagnosis back in 2019. History of angiomyolipomas on the right kidney, less than a centimeter, monitored with ultrasounds. Intervention required if growth reaches 3 cm. History of nephrolithiasis, treated by Dr. Fischer. Reports nocturia, improved to once or twice per night, and urinary urgency requiring stops while driving. 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 Immigrated from [place] at age 16, joined the [employer] at 18, served for 30 years, retired in 1994. Urinary Symptoms Review - Nocturia: Wakes up three to four times at night, improved to once or twice. - Urinary urgency: Requires stopping while driving to urinate. Results - PSA level: 3.1, previously 3.8 a year ago. - Ultrasound of right kidney: Angiomyolipomas less than a centimeter. [facility] Medical History (Updated 02/14/24 @ 10:39 by Sandro Pittman MD) Venous insufficiency Renal cyst Renal angiomyolipoma PPD positive Pleural plaque due to asbestos exposure CELY (obstructive sleep apnea) Nummular eczema Lung nodules Impaired fasting glucose Transient cerebral ischemia Esophageal dilatation Enlarged prostate Colon polyps Chronic sinusitis Calcification of aorta Benign hypertension Asthma Asbestos exposure Surgical History S/P correction of deviated nasal septum History of knee surgery History of back surgery History of appendectomy History of shoulder surgery H/O colonoscopy Family History Mother Kidney disease Father CAD (coronary artery disease) Social History Alcohol intake: current Patient Tobacco Use Status: Never used Tobacco Review of Systems Const All systems reviewed & are unremarkable except as noted in HPI and below Reports no additional complaints Resp Reports no additional complaints GI Reports no additional complaints Reports as per HPI Musc Reports no additional complaints Physical Exam Telemedicine evaluation Appropriate responses Regular breathing rate and rhythm HEENT Head: Yes normal to inspection Ears: hearing grossly normal bilaterally Eyes General: appearance normal, both eyes and all related structures Neck Neck: Yes normal visual inspection Chest Chest palpation & inspection: normal inspection of the chest Resp Effort & Inspection: normal respiratory effort and able to speak in complete sentences Telehealth Telehealth Telehealth Platform: [employer] Location of provider rendering services: practice address Location of patient: address on file Patient Identification confirmed using: Name, : Yes Telehealth method: video Patient verbally consented to treatment: Yes Patient verbally consented to billing insurance company: Yes Patient informed of any privacy concerns related to visit: Yes Assessment & Plan Assessment & Plan (1) Renal angiomyolipoma: Code(s): D17.71 - Benign lipomatous neoplasm of kidney Category: Medical (2) Renal cyst: Code(s): N28.1 - Cyst of kidney, acquired Category: Medical Plan Would like repeat renal MRI Orders: Orders MR abdomen wo/w con Today D17.71 - Benign lipomatous neoplasm of kidney Patient Instructions: This note is constructed using voice recognition software. While every effort has been made to ensure accuracy indian nanny errors may have been included. Imaging studies, laboratory and physical exam results were discussed and reviewed in detail. No major barriers to patient understanding were identified. An opportunity to ask questions regarding the treatment plan was provided. All questions were answered. The patient expressed understanding and agreement with the above treatment plan. The patient is aware they should contact our office by phone for worsening of their current condition or the appearance of new urologic symptoms. Compliance is encouraged with any medications and followup testing that is ordered. It is a privilege to participate in the urologic care of your patient. If you have any questions or concerns regarding treatment for the above conditions, or other urologic issues, please do not hesitate to contact me. The office telephone contact is [phone]. Sincerely, Dr Michael Perera MD, [facility] - Urology Compassionate Specialist Care for the Genitourinary System Coding Level of Care Code Tele Est Pt Level 4 (21435) Diagnoses Renal angiomyolipoma D17.71 Renal cyst N28.1
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
--- OUTSIDE RECORDS SUMMARY | 2025-04-22 09:52 | XMS_ITS | Patient Health Record ---
Author [facility] Address [address] [place] [address] Care Team Providers Care Independent Jeweler Name Role Phone Tera Lundberg Primary Care Provider Matt Mosley Unavailable [phone] Reason For Referral No Information Medications Medication [...] W/U Status Risk Notes Problem Tinea unguium (298244487) Tinea unguium (B35.1) Active confirmed Problem Plantar wart (52894328) Plantar wart (B07.0) Active confirmed Plan Of Treatment Pending Test Test Name Order Date [id number] Destruction, 1-14 03/11/2018 Insurance Providers Payer Name Payer Address Payer Phone Subscriber Number Group Number Insured Name Patient Relationship to Insured Coverage Start Date Coverage End Date Medicare National Govt Sv[employer] [address] [facility] [place] [address] [id number] Chalino Carmen Self - patient is the insured 8 [facility] [email or web address] [facility] [address] [address] [phone] [id number] Chalino Carmen Self - patient is the insured Medical (General) History Medical History History ICD Code asthma Broken bones, fibula, right, left High blood pressure Asbestos Exposure while in the [employer] [place] Surgical History Surgery Date(Month/Year) carpal tunnel surgery, left 11/2015 carpal tunnel surgery, right 09/2011 rotator cuff, left, complication of open shoulder 08/2008 rotator cuff, right, complication of ope n shoulder 03/2008 back surgery, bulging disc, L5-S1 1
== END 2025-04-22 09:38 | disposition home or self-care (01) ==
LOC: HO.HUSH 09:05
PROVIDERS: PCP Internal Medicine; Visit Provider Urology
DX: D17.71 Benign lipomatous neoplasm of kidney (principal); N28.1 Cyst of kidney, acquired
CPT/HCPCS: 99214

== ENCOUNTER 2025-07-14 10:02 | Outpatient (AMB) | payer MEDICARE, OTHER, SELFPAY ==
--- NOTE | 2025-07-14 10:01 | HO.NEPHOV ---
Vital Signs 07/14/25 10:08 Height 5 ft 10.5 in Weight 161 lb 4 oz BMI 22.8 BP 110/60 Blood Pressure Location Rt brachial Position Sitting Pulse 80 Pulse Source Pulse Oximeter Pulse Oximetry (%) 98 Oxygen Delivery Method Room Air Intake Visit Reasons: FU Beaming Machine Operator Required: No Accompanied by: Self / Same As Patient Allergies No Known Allergies Allergy (Verified 07/14/25 10:08) HPI Comments Details: Chalino was seen in follow up for angiomyolipoma as well as a renal cyst in the kidney. He has longstanding hypertension. He has lost weight by dietary changes. He does not have any flank pain, hematuria, night sweats or weight loss. He is very methodical and has kept copies of all his medical records in his file. Some of the follow-up imaging studies did not show any renal stones. Also some other did not show both the renal cysts. His serum creatinine has been 0.9. He does not take any excessive nonsteroidal anti-inflammatories. He denies chest pain, shortness of breath, proximal nocturnal dyspnea, orthopnea, pedal edema, dysuria, hematuria. He has history of a TIA 6 years ago. He is on aspirin and statins. [facility] Medical History (Updated 02/14/24 @ 10:39 by Sandro Pittman MD) Venous insufficiency Renal cyst Renal angiomyolipoma PPD positive Pleural plaque due to asbestos exposure CELY (obstructive sleep apnea) Nummular eczema Lung nodules Impaired fasting glucose Transient cerebral ischemia Esophageal dilatation Enlarged prostate Colon polyps Chronic sinusitis Calcification of aorta Benign hypertension Asthma Asbestos exposure Surgical History S/P correction of deviated nasal septum History of knee surgery History of back surgery History of appendectomy History of shoulder surgery H/O colonoscopy Family History Mother Kidney disease Father CAD (coronary artery disease) Social History Alcohol intake: current Patient Tobacco Use Status: Never used Tobacco Review of Systems Const All systems reviewed & are unremarkable except as noted in HPI and below Physical Exam Const General: comfortable and no acute distress Orientation/consciousness: patient oriented x3 HEENT Head: Yes normocephalic Mouth: Normal oral and palatal mucosa present Eyes EOM: EOMs intact bilaterally Neck Neck: Yes supple Resp Auscultation: clear to auscultation bilaterally Cardio Jugular venous distension: no JVD Rate: regular rate GI Palpation (GI): Soft to palpation Auscultation: normal bowel sounds General: Yes no CVA tenderness Back/Spine/Pelvis Back: no CVA tenderness Skin General skin exam: no rashes or lesions noted Neuro General: patient oriented x3 and moves all extremities Extrem General: Yes no pedal edema Results Reviewed Nephrology Results: Sodium, (135-145) 137 mmol/L 01/08/25 Potassium, (3.3-5.1) 4.8 mmol/L 01/08/25 Chloride, (96-108) 104 mmol/L 01/08/25 Carbon Dioxide, (22-29) 29 mmol/L 01/08/25 BUN, (9-16) 30 mg/dL H 01/08/25 Creatinine, (0.5-1.4) 0.95 mg/dL 01/08/25 Renal US 02/23/25 Assessment & Plan Assessment & Plan (1) Hypertension: Code(s): I10 - Essential (primary) hypertension Category: Medical Qualifiers: Hypertension type: primary hypertension Qualified Code(s): I10 - Essential (primary) hypertension (2) Renal cyst: Code(s): N28.1 - Cyst of kidney, acquired Category: Medical (3) Renal calculus: Code(s): N20.0 - Calculus of kidney Category: Medical Plan Chalino has history of angiomyolipoma of the kidney( but not seen in recent MRI) as well as history of 2 renal cysts. He had a renal calculus . Follow up renal USS showed very mild left hydronephrosis and proximal hydroureter. Otherwise, unremarkable examination. No calculus is seen.. Blood pressure is optimal on current medications. If his angiomyolipoma is getting significantly bigger, it may need embolization. I did not make any medication changes today. All his questions were answered. Follow-up given Orders: Orders Protein Creatinine Ratio, Ur 6 Months I10 - Essential (primary) hypertension, N20.0 - Calculus of kidney, N28.1 - Cyst of kidney, acquired UA and rflx microscopic 6 Months I10 - Essential (primary) hypertension, N20.0 - Calculus of kidney, N28.1 - Cyst of kidney, acquired Electrolytes 6 Months I10 - Essential (primary) hypertension, N20.0 - Calculus of kidney, N28.1 - Cyst of kidney, acquired Blood Urea Nitrogen 6 Months I10 - Essential (primary) hypertension, N20.0 - Calculus of kidney, N28.1 - Cyst of kidney, acquired Creatinine 6 Months I10 - Essential (primary) hypertension, N20.0 - Calculus of kidney, N28.1 - Cyst of kidney, acquired Coding Level of Care Code Est Pt Level 4 (84129) Diagnoses Primary hypertension I10 Hypertension type: primary hypertension Renal cyst N28.1 Renal calculus N20.0
[2025-07-14 10:08] VITALS: BP 110/60; PULSE 80; O2SAT 98; BMI 22.8
--- OUTSIDE RECORDS SUMMARY | 2025-07-14 12:15 | XMS_ITS | Patient Health Record ---
[facility] Address [address] [place] [address] Care Team Providers Care Entry Clerk Name Role Phone Tera Lundberg Primary Care Provider Matt Mosley Unavailable [phone] Reason For Referral No Information Medications Medication [...] W/U Status Risk Notes Problem Tinea unguium (357473725) Tinea unguium (B35.1) Active confirmed Problem Plantar wart (66125116) Plantar wart (B07.0) Active confirmed Plan Of Treatment Pending Test Test Name Order Date [id number] Destruction, 1-14 03/11/2018 Insurance Providers Payer Name Payer Address Payer Phone Subscriber Number Group Number Insured Name Patient Relationship to Insured Coverage Start Date Coverage End Date Medicare National Govt Svcs Inc [address] [place] [address] [id number] Chalino Carmen Self - patient is the insured 8 [facility] [employer] [facility] [address] [place] [address] [id number] Chalino Carmen Self - patient is the insured Medical (General) History Medical History History ICD Code asthma Broken bones, fibula, right, left High blood pressure Asbestos Exposure while in the [employer] [place] Surgical History Surgery Date(Month/Year) carpal tunnel surgery, left 11/2015 carpal tunnel surgery, right 09/2011 rotator cuff, left, complication of open shoulder 08/2008 rotator cuff, right, complication of ope n shoulder 03/2008 back surgery, bulging disc, L5-S1 1
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
== END 2025-07-14 10:25 | disposition home or self-care (01) ==
LOC: HO.HKA 10:03
PROVIDERS: PCP Internal Medicine; Visit Provider Internal Medicine Nephrology
DX: I10 Essential (primary) hypertension (principal); N28.1 Cyst of kidney, acquired; N20.0 Calculus of kidney
CPT/HCPCS: 99214

== ENCOUNTER → 2025-07-14 10:02 | Outpatient (BNVA) | payer MEDICARE, OTHER, SELFPAY | PROVIDERS: PCP Internal Medicine; Visit Provider Internal Medicine Nephrology | DX: I10 Essential (primary) hypertension (principal); N28.1 Cyst of kidney, acquired; N20.0 Calculus of kidney | CPT/HCPCS: 99212 ==

== ENCOUNTER 2025-07-26 10:56 | Emergency (ER) | payer OTHER, SELFPAY ==
--- NOTE | ~2025-07-26 | XR_ITS ---
EXAMINATION: XR CHEST CLINICAL INFORMATION: cough, chest pain COMPARISON: Remote chest CT 09/13/2009. TECHNIQUE: 2 views of the chest were obtained. FINDINGS: The cardiac, hilar, and mediastinal contours are normal. The lungs are somewhat hyperaerated and hyperlucent, suggesting COPD. Mild nodularity to the diaphragmatic pleura with pleural calcifications, and bilateral subtle pleural plaques likely present, in keeping with prior asbestos exposure. There is a nodular focus in the left mid to upper lung for which a lung nodule cannot be excluded. This could also represent a calcified pleural plaque. There is no effusion or pneumothorax. There is no concerning osseous or soft tissue abnormality. There are surgical anchors in the right humeral head. There are degenerative changes of the spine with a mild scoliosis. XR/XR chest 2V IMPRESSION: 1. Hyperaerated lungs suggesting underlying COPD. 2. Calcified pleural plaques noted, in keeping with history of asbestos exposure. 3. Nodular opacity in the left lateral mid to upper lung, possibly a calcified pleural plaque although lung nodule is also a possibility. CT recommended to further evaluate. Electronically signed by: Santos Maharaj MD 07/26/2025 11:39 AM EST
--- NOTE | 2025-07-26 11:01 | ECG_ITS ---
Test Reason : CP Blood Pressure : */* mmHG Vent. Rate : 77 BPM Atrial Rate : 77 BPM P-R Int : 138 ms QRS Dur : 92 ms QT Int : 390 ms P-R-T Axes : 28 -5 47 degrees QTcB Int : 441 ms Sinus rhythm with Premature atrial complexes Otherwise normal ECG When compared with ECG of 15-May-2013 15:09, Premature atrial complexes are now Present Nonspecific T wave abnormality now evident in Anterior leads Referred By: Neha Mcdonough Electronically Signed By: JASON ROSARIO
[2025-07-26 11:13] VITALS: BP 125/61; PULSE 81; RESP 16; TEMP 36.6; O2SAT 98; BMI 23.3
--- NOTE | 2025-07-26 11:16 | ED_ITS ---
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 Symptoms began ~2 days ago with a ?tickle? in the throat that progressed to a productive cough with sputum and subjective fever (Tmax 101.8 ?F yesterday). Patient reports awakening overnight with shortness of breath and took 1 ? tablets of Tylenol this morning for symptom relief. He has increased oral fluid intake and rested since onset. No vomiting or diarrhea. He follows with a infrastructure design engineer and has had prior chest CT imaging. Patient reports 100% disability related to Agent [place] exposure and 100% disability for asbestos exposure. Review of Systems: ? Constitutional: positive fever yesterday (101.8 ?F). ? Respiratory: productive cough, shortness of breath. ? GI: denies vomiting, denies diarrhea. Related Data Home Medications ?Medication ?Instructions ?Recorded ?Confirmed fluticasone propionate 110 inhalation 08/15/23 mcg/actuation HFA aerosol inhaler losartan 50 mg-hydrochlorothiazide 1 tab PO DAILY 07/29 04/21 12.5 mg tablet atorvastatin 10 mg tablet 10 mg PO DAILY 07/17/24 omeprazole 20 mg capsule,delayed 40 mg PO DAILY PRN release Previous Rx's ?Medication ?Instructions ?Recorded oseltamivir 75 mg capsule (Tamiflu) 75 mg PO BID 5 day s #10 caps 07/26/25 Allergies Allergy/AdvReac Type Severity Reaction Status Date / Time No Known Allergies Allergy Verified 07/26/25 11:17 Review of Systems 2 Review of Systems: Yes all other systems are reviewed and are negative PMFSH Past Medical History Attestation statement: The following information was validated with the patient. 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 CELY (obstructive sleep apnea) Nummular eczema Lung nodules Impaired fasting glucose Transient cerebral ischemia Esophageal dilatation Enlarged prostate Colon polyps Chronic sinusitis Calcification of aorta Benign hypertension Asthma Asbestos exposure Surgical History S/P correction of deviated nasal septum History of knee surgery History of back surgery History of appendectomy History of shoulder surgery H/O colonoscopy Family History Family History Mother Kidney disease Father CAD (coronary artery disease) Social History Social History Alcohol intake: current Patient Tobacco Use Status: Never used Tobacco Advance Directives: No Advance Directives Information Provided: No Do you have a plan to hurt others: No Plan Physical Exam ED Exam Exam: General: Appears in no acute distress, appears well nourished body habitus is normal, appears younger than stated age. No septic but common cold-like appearing, Vitals reviewed normal, PMH/Social and Surgical hx reviewed including allergies and current medications. - reviewed for prior visits here Head: Normocephalic, no abnormal lesions noted. Eyes: EOMI. Conjunctiva and sclera not injected, no d/c, PERRLA ENMT: moist oral mucosa, no edematous nasal turbinates, erythema, or purulent d/c noted. No erythema, normal appearing and intact tympanic membrane. Hearing intact. No mastoid tenderness b/l. Normal posterior pharynx and structures. Uvula is midline no trismus. Neck: trachea midline, no lymphadenopathy. No nuchal rigidity. Cardiovascular: peripheral perfusion normal, S1 and S2 present, no M/R/G. RRR Respiratory: no respiratory distress, lungs clear to auscultation b/l, respirations full and symmetric. No flail chest, chest wall tenderness or crepitus noted. Speaking in full smooth sentences. Abdomen: nondistended Extremities: Warm and appear well perfused. Moving extremities without difficulty. Psych: Cooperative, calm. Neuro: Alert and orientated. No obvious focal deficits. Vital Signs: Vital Signs - 24 hr 07/26/25 11:13 07/26/25 16:11 Temperature 98 F 98.1 F Pulse Rate 81 80 Respiratory Rate 16 18 Blood Pressure 125/61 144/66 H Pulse Oximetry 98 98 Oxygen Delivery Method Room Air Room Air BMI result Body Mass Index 23.3 Course Course Course Narrative: Rapid medical examination performed in triage by Neha Mcdonough PA-C: Patient is an 80 year old male presenting to the emergency department with chest tightness / cough. Patient states that he has been feeling generally unwell with chest tightness and cough. Detailed physical exam and review of systems are deferred to the formulation chemist. EKG, labs, imaging, swabs ordered. Patient placed back in the waiting room pending room availability and results. Medical Decision Making Medical Decision Making [facility] Narrative: This 80-year-old male with a history of CELY, HTN, TIA, pleural plaque due to asbestos exposure presented with acute respiratory symptoms and was found to have a confirmed Influenza A infection. His evaluation?including laboratory studies, EKG, and chest X-ray?revealed no evidence of pneumonia, acute cardiac process, or metabolic derangement. The chest X-ray demonstrated a calcified pleural plaque, a chronic finding consistent with his known asbestos exposure, which does not require further workup today. Given his stable vital signs, adequate oxygenation, and absence of acute complications, hospital admission is not indicated; he is safe for outpatient management with oseltamivir and supportive care, and follow-up with his infrastructure design engineer is advised. Assessment & Plan 80-year-old male with positive Influenza A and chronic asbestos exposure presenting with acute viral illness without evidence of pneumonia or acute cardiac etiology. Stable vitals and oxygenation overall; discharged with antiviral therapy and supportive care instructions. Problem #1: Influenza A (without pneumonia) Assessment: Confirmed by positive rapid test; correlates with 2-day history of fever, cough, and malaise. No bacterial superinfection identified. Plan: * Oseltamivir (Tamiflu) prescription sent to pharmacy to shorten disease course. * Supportive care: OTC symptomatic relief (e.g., generic DayQuil/NyQuil), maintain hydration, rest. Problem #2: Calcified pleural plaque vs lung nodule on CXR; history of asbestos exposure Assessment: Incidental nodular opacity likely representing calcified pleural plaque related to known asbestos exposure; no acute process identified. Plan: * Continue routine follow-up with established infrastructure design engineer. * Monitor for new or worsening respiratory symptoms; seek care if they occur. Differential Diagnosis Differential Diagnoses: The differential diagnosis associated with the presentation includes AOM (normal), AOE (normal) bacterial sinusitis (0/3), strep/ tonsillitis (ASSISTED score is -1, testing not indicated), bronchitis/pneumonia (lungs clear, CXR without infiltrate, PO abx/steroids not indicated) Admission/Observation Consideration of admission/observation: Escalation of care including admission/observation considered Lab Data MDM Lab Attestation statement: I reviewed the patient's lab results. ? CBC: no anemia, no leukocytosis. ? BMP: no IRMA, electrolytes within normal limits. ? Pro-BNP: not significantly elevated. ? Troponin: negative. ? Influenza A: positive. ? COVID-19 and RSV tests: negative. 07/26/25 11:07/26/25 11: Labs: Lab Results 07/26/25 Range/Units 11: WBC 5.0 (4.8-10.8) X10*3/uL RBC 4.68 (4.60-5.80) X10*6/uL Hgb 14.2 (14.0-18.0) g/dl Hct 41.8 L (42.0-52.0) % MCV 89.3 (80.0-98.0) fL MCH 30.3 (27.0-33.0) pg MCHC 34.0 (31.0-36.0) g/dl RDW 14.0 (11.0-16.0) % Plt Count 223 (160-400) X10*3/uL MPV 8.7 L (9.4-12.4) fL Immature Gran % (Auto) 2.0 H (0.0-0.4) % Neut % (Auto) 73.1 H (45-73) % Lymph % (Auto) 8.4 L (20-40) % [place] % (Auto) 15.3 H (2-11) % Eos % (Auto) 0.6 (0-4) % Baso % (Auto) 0.6 (0-2) % Lymph # (Auto) 0.4 L (1.2-4.9) X10*3/uL [place] # (Auto) 0.8 (0.1-1.2) X10*3/uL Eos # (Auto) 0.0 (0.0-0.4) X10*3/uL Baso # (Auto) 0.0 (0.0-0.2) X10*3/uL Abs Immat Gran (auto) 0.10 H (0.00-0.03) X10*3/uL Absolute Neuts (auto) 3.7 (2.0-8.3) x10*3/uL Absolute Nucleated RBC 0.000 (0.0-0.012) X10*3/uL Nucleated RBC % (auto) 0.0 (0.0-0.2) /100WBC Sodium 138 (135-145) mmol/L Potassium 4.1 (3.3-5.1) mmol/L Chloride 105 (96-108) mmol/L Carbon Dioxide 26 (22-29) mmol/L Anion Gap 11 L (12-20) BUN 18 H (9-16) mg/dL Creatinine 0.97 (0.5-1.4) mg/dL Estim Creat Clear Calc 62.7 Estimated GFR > 60 Random Glucose 100 (60-115) mg/dL Calcium 8.9 (8.4-10.2) mg/dL Magnesium 2.2 (1.6-2.6) mg/dL Total Bilirubin 0.5 (0.0-1.0) mg/dL AST 22 (5-37) U/L ALT 17 (0-40) U/L Alkaline Phosphatase 48 (39-117) U/L Troponin I High Sens 4.0 (<3.5-35.0) ng/L NT-Pro-B Natriuret Pep 297.4 (<300) pg/mL Total Protein 7.1 (6.5-8.0) g/dL Albumin 4.4 (3.5-5.0) g/dL Influenza Type A (PCR) POSITIVE A (Negative) Influenza Type B (PCR) NEGATIVE (Negative) RSV RNA Qual (PCR) NEGATIVE (Negative) SARS-CoV-2 RNA (RT-PCR) NEGATIVE (Negative) Independent Interpretation I performed an independent interpretation of an: EKG and Plain X-Ray Interpretation: CXR: no infiltrate EKG: no malignant arrhythmia or ischemia noted, NSR with occasional PACs Radiology Impression Discussion of test interpretation with radiology: I have reviewed the radiologist's reading. Radiologist Impression: Chest X-ray: nodular opacity in left lateral [id number] lung region appearing as calcified pleural plaque vs lung nodule; no evidence of pneumonia. 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 Social Determinants Patient?s care significantly limited by Social Determinants of Health including: Other Social Determinant of Health Discharge Plan Discharge Clinical Impression: Influenza A, Lung nodule Patient Disposition: Home, Self-Care Instructions: Influenza (ED) Additional Instructions: Discharge Summary for [place] Patient: [place] Date: July 26, 2025 Provider: Silvina Box PA-C Why You Came to the Hospital: You came to the emergency department because you developed a bad cough, fever, and trouble breathing that started about 2 days ago. What We Found: You tested positive for Influenza A (the flu). Your chest X-ray showed a small calcified area in your lung that is likely related to your past asbestos exposure. We did not find any pneumonia or heart problems. Your blood work and other tests were normal. Your Diagnosis: - Influenza A (the flu) - Calcified pleural plaque (old finding from asbestos exposure) Your Treatment: We are sending you home with a prescription for oseltamivir (Tamiflu), an antiviral medication that helps shorten the flu and reduce complications.Take this medicine exactly as prescribed, even if you start feeling better. Home Care Instructions: Taking Your Medicine: - Take oseltamivir (Tamiflu) 75 mg by mouth twice daily for 5 days - You can take it with or without food, but taking it with food may help prevent stomach upset - Complete the full 5-day course even if you feel better General Care: - Get plenty of rest - Drink lots of fluids (water, juice, soup) to stay hydrated - You may use [id number] medicines like Tylenol (acetaminophen) or ibuprofen for fever and body aches - You may use cough and cold medicines (like DayQuil/NyQuil) for symptom relief - Stay home and avoid contact with others to prevent spreading the flu When to Seek Medical Attention: Call 911 or go to the emergency department right away if you develop: - Severe trouble breathing or shortness of breath - Chest pain or pressure - Confusion or difficulty waking up - Severe dizziness or weakness - Seizures - Severe or persistent vomiting - Symptoms that improve but then come back with fever and worse cough Call your doctor if: - Your symptoms are not improving after 3-4 days - You develop new symptoms - You have any concerns about your recovery Follow-Up: - Continue to see your infrastructure design engineer (lung doctor) as scheduled for monitoring of the finding on your chest X-ray - If you don't have an appointment scheduled, please call to make one within the next few weeks Important Reminders: - You are contagious and can spread the flu to others. Stay home until you have been fever-free for at least 24 hours without using fever-reducing medicine - Wash your hands frequently - Cover your coughs and sneezes with a tissue or your elbow We hope you feel better soon. If you have any questions or concerns, please don't hesitate to call your doctor. Prescriptions: New oseltamivir [Tamiflu] 75 mg capsule 75 mg PO BID 5 Days Qty: 10 0RF No Action fluticasone propionate 110 mcg/actuation HFA aerosol inhaler inhalation losartan-hydrochlorothiazide 50-12.5 mg tablet 1 tab PO DAILY omeprazole 20 mg capsule,delayed release(DR/EC) 40 mg PO DAILY PRN atorvastatin 10 mg tablet 10 mg PO DAILY Referrals: Alex Brooks MD [Primary Care Provider, Internal Medicine] Clinical Impression: Influenza A Interventions: ED Discharge Assessment Last Done: 07/26/25 16:22 Discharge Date/Time: 07/26/25 16:24 Print Language: Haitian
[2025-07-26 11:40] LABS: Hematocrit 41.8 % (42.0-52.0); Hemoglobin 14.2 g/dl (14.0-18.0); Imm Gran Abs Auto 0.10 X10*3/uL (0.00-0.03); Imm Gran Pct Auto 2.0 % (0.0-0.4); Lymphocytes Absolute Auto 0.4 X10*3/uL (1.2-4.9); MANUAL DIFF FLAG NO; Mean Corpuscular HGB Conc 34.0 g/dl (31.0-36.0); Mean Corpuscular Hemoglobin 30.3 pg (27.0-33.0); Mean Corpuscular Volume 89.3 fL (80.0-98.0); NRBC Abs Auto 0.000 X10*3/uL (0.0-0.012); NRBC Pct Auto 0.0 /100WBC (0.0-0.2); Platelet Count 223 X10*3/uL (160-400); Red Blood Count 4.68 X10*6/uL (4.60-5.80); White Blood Count 5.0 X10*3/uL (4.8-10.8)
[2025-07-26 11:59] LABS: Alanine Aminotransferase 17 U/L (0-40); Albumin Level 4.4 g/dL (3.5-5.0); Alkaline Phosphatase 48 U/L (39-117); Anion Gap 11 (12-20); Aspartate Amino Transferase 22 U/L (5-37); Blood Urea Nitrogen 18 mg/dL (9-16); Calcium 8.9 mg/dL (8.4-10.2); Carbon Dioxide 26 mmol/L (22-29); Chloride 105 mmol/L (96-108); Creatinine Clr Calc Pharmacy 62.7; Estimated Glomerular Filt Rate > 60; Magnesium 2.2 mg/dL (1.6-2.6); Potassium 4.1 mmol/L (3.3-5.1); Sodium 138 mmol/L (135-145); Total Protein 7.1 g/dL (6.5-8.0)
[2025-07-26 12:06] LABS: NT Pro B Type Natriuretic Pept 297.4 pg/mL (<300); Troponin-I High Sensitivity 4.0 ng/L (<3.5-35.0)
[2025-07-26 12:18] LABS: Resp Syncy Virus RNA Qual PCR NEGATIVE (Negative); SARS COV2 PCR INHOUSE NEGATIVE (Negative)
[2025-07-26 16:11] VITALS: BP 144/66; PULSE 80; RESP 18; TEMP 36.7; O2SAT 98
[2025-07-26 16:22] VITALS: BP 144/66; PULSE 80; RESP 18; TEMP 36.7; O2SAT 98
--- OUTSIDE RECORDS SUMMARY | 2025-07-26 17:55 | XMS_ITS | Data Portability ---
Author Organization [place] - [facility], Allergy Address [address] [address] Care Team Providers Care Inspecting Supervisor Name Role Phone BARRIE COLIN Primary Care Provider [phone] Assessment Encounter Date Assessment Date Assessment LastModified by Organization Details LastModified Time 07/21/2024 07/21/2024 79yo M with sensorineural hearing loss bilaterally presents for evaluation of the ears. He denies otologic concerns today. The left ear remains well-healed following tympanic membrane trauma with subsequent spontaneous healing over 6 months ago. I gave the patient reassurance that the eardrum appears healthy and that no further follow-up should be required. Patient will follow up in the office as needed. felix Not available 07/21/2024 09:48:18 Plan of Treatment Reminders Order Date Submit Date Provider Last Modified By Organization Details Last Modified Time Details Appointments None record ed. Lab None record ed. Referral None record ed. Procedures None record ed. Surgeries None record ed. Imaging None record ed. Medication Orders None record ed. Patient TargetsNo targets recorded. Patient InstructionsNo instructions recorded. Reason for Referral None Reported. Results Created Date Observation Date Name Description Value Unit Range Abnormal Flag Note LastModifiedBy Organization Detail LastModifiedTime 03/19/2010/17/2023 imagi ng/di agnos tic resul t No observ ation record ed. [email or web address] Not Available 02:37:50 03/19/20 24 05/01/2023 imagi ng/di agnos tic resul t No observ ation record ed. [email or web address] Not Available 02:38:56 03/19/20 24 10/17/2023 audio gram No observ ation record ed. [email or web address] Not Available 02:39:45 03/19/20 24 05/01/2023 audio gram No observ ation record ed. [email or web address] Not Available 02:40:50 Result Notes None recorded. Problems Name Problem SNOMED Code Status Onset Date Resolution Date Notes Provider Name and Address Organization Details Recorded Time Obstruct reginald sleep apnea syndrome 22557631 Active 2019 Obstruct reginald sleep apnea (adult) (pediatr ic); Note: Date Diagnose d: 0 11:03 AM (G47.33) Not Available [facility] 4 03:03:37 Wheezing 04609827 Active 2019 Wheezing ; Note: Date Diagnose d: 0 11:03 AM (R06.2) Not Available [facility] 4 03:03:38 Gastroes ophageal reflux disease without esophagi tis 254563783 Active 2019 Gastro-e sophagea l reflux disease without esophagi tis; Note: Date Diagnose d: 6 1:43 PM (K21.9) Not Available [facility] 4 03:03:36 Dysphagi a 96718263 Active 2021 Dysphagi a, unspecif ied; Note: Date Diagnose d: 2 2:15 PM (R13.10) Not Available [facility] 4 03:03:36 Foreign body in left ear 64582448915 657595 Completed 202201/28/2024 Foreign body in left ear, initial encounte r; Note: Date Diagnose d: 3 4:08 PM (T16.2XX A) Note: Date Diagnose d: 3 4:08 PM (T16.2XX A) WILIAN MOE MD [address] [place] [address], [facility] [place], [address] , [facility] - [facility] 4 10:17:44 Otorrhea of left ear 66410527414 80569 Completed 202202/28/2024 Otorrhea , left ear; Note: Date Diagnose d: 3 4:08 PM (H92.12) Not Available [facility] 4 03:03:35 Mixed conducti ve and sensorin eural hearing loss of left ear 15987446500 107 Completed 202201/28/2024 Mixed conducti ve and sensorin eural hearing loss, unilater al, left ear with restrict ed hearing on the contrala teral side; Note: Date Diagnose d: 3 10:19 AM (H90.A32 ) Note: Date Diagnose d: 10:19 AM (H90.A32 ) WILIAN MOE MD [address] [place] [address], [facility] [place], [address] , [facility] 4 10:17:25 Marginal perforat ion of tympanic membrane 81548871 Completed 202201/28/2024 Other marginal perforat ions of tympanic membrane , left ear; Note: Date Diagnose d: 3 10:20 AM (H72.2X2 ) Note: Date Diagnose d: 3 10:20 AM (H72.2X2 ) WILIAN MOE MD [address] [place] [address], [facility] [place], [address] , [facility] 4 10:14:05 Sensorin eural hearing loss in right ear 00899479968 100 Active 2022 Sensorin eural hearing loss, unilater al, right ear, with restrict ed hearing on the contrala teral side; Note: Date Diagnose d: 3 10:19 AM (H90.A21 ) Not Available [facility] 4 03:03:37 Nervous system and sense organ diseases 759362383 Active 2022 Personal history of other diseases of the nervous system and sense organs; Note: Date Diagnose d: 07/17/20 23 5:07 AM (Z86.69) Not Available [facility] 4 03:03:37 History of Disorder 800286303 Active 2022 Personal history of other diseases of the nervous system and sense organs; Note: Date Diagnose d: 07/17/20 23 5:07 AM (Z86.69) Not Available [facility] 4 03:03:37 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 Procedures Surgical History Date Name Laterality Status Provider Name and Address Organization Details Recorded Time Eye Surgery completed Mireille Brannon [facility] 01/28/2024 10:03:50 Imaging Results None recorded. Procedure Notes None recorded. Medical Equipment None Reported. Allergies No known drug allergies Medications Name Sig Start Date Stop Date Status Note LastModified by Organization Details LastModified Time Prescript ion - Prior Authoriza tion Request active Script Copy/Xi or Auth^Scr ipt Copy/Xi or Auth_ Not Available Not Available Not Available losartan 50 mg tablet 01/27 completed Not Available Not Available Not Available doxycycli ne hyclate 100 mg capsule 01/27 completed Not Available Not Available Not Available ketoconaz ole 2 % shampoo 01/27 completed Not Available Not Available Not Available atorvasta tin 10 mg tablet TAKE 1 TABLET BY MOUTH EVERY DAY active Not Available Not Available No t Available meloxicam 15 mg tablet TAKE 1 TABLET BY MOUTH EVERY DAY AFTER MEALS active Not Available Not Available No t Available fluocinon mandi 0.05 % topical ointment 01/27 completed Medicati on ID: [id number] D uration Value: 90 Brand Name: fluocino nide Sen d Method: E-Prescr ibed Sub s Allowed: subs OK Medic ationGen ericName : fluocino nide Med ication ID: [id number] D uration Value: 90 Brand Name: eloina hernandez Sen d Method: E-Prescr ibed Sub s Allowed: subs OK Medic ationGen ericName : eloina hernandez Not Available Not Available Not Available omeprazol e 40 mg capsule,d elayed release TAKE 1 CAPSULE BY MOUTH DAILY 30 MINUTES BEFORE A MEAL active Not Available Not Available No t Available aspirin 81 mg tablet,de layed release 2019 active Medicati on ID: [id number] D uration Value: 90 Brand Name: aspirin Send Method: E-Prescr ibed Sub s Allowed: subs OK Medic ationGen ericName : aspirin Not Available Not Available Not Available prednisol one acetate 1 % eye drops,jesus pension 07/16 completed Medicati on ID: [id number] D uration Value: 18 Brand Name: predniso lone acetate Send Method: E-Prescr ibed Sub s Allowed: subs OK Medic ationGen ericName : predniso lone acetate Not Available Not Available Not Available tamsulosi n 0.4 mg capsule TAKE 1 CAPSULE BY MOUTH ONCE EVERY DAY active Not Available Not Available No t Available cephalexi n 500 mg capsule 01/27 completed Not Available Not Available Not Available halobetas ol propionat e 0.05 % topical ointment 01/27 completed Not Available Not Available Not Available omeprazol e 20 mg capsule,d elayed release active Medicati on ID: [id number] B rand Name: omeprazo le Send Method: E-Prescr ibed Sub s Allowed: subs OK Medic ationGen ericName : omeprazo le Not Available Not Available Not Available losartan 50 mg-hydroc hlorothia zide 12.5 mg tablet TAKE 1 TABLET BY MOUTH EVERY DAY active Not Available Not Available No t Available fluticaso ne propionat e 110 mcg/actua tion HFA aerosol inhaler 01/27 completed Not Available Not Available Not Available tobramyci n 0.3 %-dexamet hasone 0.1 % eye drops,jesus pension INSTILL 1 DROP TO LEFT EYE FOUR TIMES DAILY FOR 7 TO 10 DAYS active Not Available Not Available No t Available neomycin- polymyxin -hydrocor t 3.5 mg-10,000 unit/mL-1 % ear drops,jesus p 01/27 completed Not Available Not Available Not Available ciproflox acin 0.3 %-dexamet hasone 0.1 % ear drops,jesus pension Apply 4 drop into left ear twice a day 01/27 completed Not Available Not Available Not Available ProAir HFA 07/16 completed Medicati on ID: [id number] D uration Value: 75 Brand Name: MiradiaA Send Method: E-Prescr ibed Sub s Allowed: subs OK Medic ationGen ericName : ProAir HFA Not Available Not Available Not Available Paxlovid 300 mg (150 mg x 2)-100 mg tablets in a dose pack 01/27 completed Not Available Not Available Not Available Vitals Date Recorded Body weight Body mass index (BMI) Body height Provider Name and Address Organization Details Last Updated DateTime 07/21/2024 38486.22 g 22.1 kg/m2 177.8 cm Valerie Ram [place] - [facility] 07/21/2024 09:14:55 Social History None recorded. Functional Status None recorded. Mental Status None recorded. Family History Nothing Reported. Medical History Condition Response Hypertension Y Asthma Y Speech Delay Y GERD/Reflux Y Past Encounters Encounter ID Performer Location Encounter Start Date Encounter Closed Date Diagnosis/Indication Diagnosis SNOMED-CT Code Diagnosis ICD10 Code Diagnosis IMO Codes Diagnosis Note [id number] WILIAN MOE MD [facility] [address] [address] 01/28/2024 09:53:26 01/28/2024 10:14:10 Atrophic flaccid left tympanic membrane [id number] 906813 H73.812 The left ear remains well-heale d following tympanic membrane trauma with subsequent spontaneou s healing. I gave the patient reassuranc e that the eardrum appears healthy and that no further follow-up should be required. Patient would like to be seen again in 6 months for peace of mind to ensure that the eardrum remains healed and healthy. I will have him see a physician assistant front end manager for this. I recommende d against scuba diving in the future. Audiometri c testing could be repeated if desired if he notes difficulty in listening situations . Sensorineu ral hearing loss of bilateral ears 077629794 H90.3 [id number] RAHEEL RUTLEDGE PA-C [facility] [address] [address] 07/21/2024 09:07:38 07/21/2024 09:43:54 Atrophic flaccid left tympanic membrane 2519009409 061388 H73.812 Sensorineu ral hearing loss of bilateral ears 306305087 H90.3 Health Concerns Section Related Observation LastModified by Organization Detai ls LastModified Time None Recorded Concern Status LastModified by Organization Details LastModified Time None Recorded Advance Directives Directive None Recorded Payers Insurance Date Sequence Insurance Name Policy Number Policy Mims Covered Member ID Mims Member ID Guarantor Name 07/21/2024 1 MEDICARE B-DE: [employer] Chalino Gutierrez Romain [id number] Chalino Gutierrez Romain 07/21/2024 2 FOR LIFE () Chalino Gutierrez Romain [id number] Chalino Gutierrez Romain Notes Date Note Type Note Provider Name and Address Organization Details Recorded Time 01/28/2024 text/html Patient who suffered left traumatic Q-tip tympanic membrane perforation in March 2023. He was last seen back in September at which point the perforation had healed spontaneously and the conductive component of his hearing loss had also resolved. Patient returns for reevaluation to confirm long-term stability of the healing. Notes occasional pressure sensation in the left ear which is relieved by putting his finger in the ear and pushing down. WILIAN MOE MD [address] [place] [address], [phone], [facility] - [facility] 01/28/2024 10:19:08 07/21/2024 text/html ROS as noted in the HPI 79 year old male with SNHL presents for evaluation of the ears. He has a history of left TM trauma with subsequent spontaneous healing over 6 months ago. He denies otalgia, otorrhea, or hearing changes. WILIAN MOE MD [address] [place] [address], [phone], [place] - [facility] 07/21/2024 13:01:44
--- OUTSIDE RECORDS SUMMARY | 2025-07-26 17:55 | XMS_ITS | Clinical Summary ---
Author Organization [facility] Address [address] [place] [address] Phone Care Team Providers Care Head Of Loss Prevention Name Role Phone Alex Brooks MD Primary Care Provider [phone] Allergies Active Allergy Reactions Criticality Noted Date [...] age to complete this topic Insurance MEDICARE [facility] Care Teams Head Of Loss Prevention Relationship Specialty Start Date End Date Alex Brooks MD [facility] [place] [address] PCP - General Internal Medicine 07/02/24
--- OUTSIDE RECORDS SUMMARY | 2025-07-26 17:55 | XMS_ITS | Patient Health Record ---
Author Organization [facility] Address [address] [facility] [place] [address] Care Team Providers Care Instructor Nurse Name Role Phone Tera Lundberg Primary Care Provider Matt Mosley Unavailable [phone] Reason For Referral No Information Medications Medication [...] W/U Status Risk Notes Problem Tinea unguium (493176223) Tinea unguium (B35.1) Active confirmed Problem Plantar wart (17615291) Plantar wart (B07.0) Active confirmed Plan Of Treatment Pending Test Test Name Order Date [id number] Destruction, 1-14 03/11/2018 Insurance Providers Payer Name Payer Address Payer Phone Subscriber Number Group Number Insured Name Patient Relationship to Insured Coverage Start Date Coverage End Date Medicare National [employer] [address] [facility] [place] [address] [id number] Chalino Carmen Self - patient is the insured [facility] [employer] [facility] [address] [place] [address] [id number] Chalino Carmen Self - patient is the insured Medical (General) History Medical History History ICD Code asthma Broken bones, fibula, right, left High blood pressure Asbestos Exposure while in the [employer] Surgical History Surgery Date(Month/Year) carpal tunnel surgery, left 11/2015 carpal tunnel surgery, right 09/2011 rotator cuff, left, complication of open shoulder 08/2008 rotator cuff, right, complication of ope n shoulder 03/2008 back surgery, bulging disc, L5-S1 1
== END 2025-07-26 16:24 | disposition home or self-care (01) ==
PROVIDERS: Physician Assistant Medical; Emergency Provider Emergency Medicine; PCP Internal Medicine
DX: J10.1 Influenza due to other identified influenza virus with other respiratory manifestations (principal); R50.9 Fever, unspecified; R07.89 Other chest pain; R05.9 Cough, unspecified; R91.1 Solitary pulmonary nodule; R06.02 Shortness of breath; Z03.818 Encounter for observation for suspected exposure to other biological agents ruled out; Z79.899 Other long term (current) drug therapy
CPT/HCPCS: 71046; 80053; 83735; 83880; 84484; 85025; 87637; 93005; 99283

== ENCOUNTER → 2025-07-26 11:01 | Outpatient (BNV) | payer MEDICARE, OTHER, SELFPAY | PROVIDERS: Emergency Provider Emergency Medicine; PCP Internal Medicine; Visit Provider Internal Medicine | DX: I49.1 Atrial premature depolarization (principal) | CPT/HCPCS: 93010 ==

== ENCOUNTER → 2025-07-26 11:17 | Outpatient (BNV) | payer MEDICARE, OTHER, SELFPAY | PROVIDERS: PCP Internal Medicine; Visit Provider Radiology Diagnostic Radiology | DX: R91.8 Other nonspecific abnormal finding of lung field (principal); J92.9 Pleural plaque without asbestos | CPT/HCPCS: 71046 ==